=== PATIENT | male | born 1995 | race African-American/Black ===

== ENCOUNTER 2017-12-07 05:58 | Day surgery (SDC) | payer MEDICARE ==
[~2017-12-07] VITALS: Ht 182.9 cm; Wt 73.5 kg
--- NOTE | ~2017-12-07 | OP ---
PATIENT NAME: JENIFFER HERNANDEZ MEDICAL RECORD: [id number] :95 LOCATION:D.OPS ADMISSION DATE: SURGEON: ASHLEY TURCIOS MD DATE OF OPERATION: 12/07/2017 SURGEON: Ashley Turcios MD PREOPERATIVE DIAGNOSES: 1. Anal warts. 2. HIV. POSTOPERATIVE DIAGNOSES: 1. Anal warts. 2. HIV. PROCEDURE PERFORMED: CO2 laser fulguration of anal condylomas. ANESTHESIA: General. COMPLICATIONS: None. SPECIMENS: Anal condyloma. Case was contaminated. OPERATIVE COURSE: After consent was obtained, the patient was taken to the operating room and placed in supine position on the operating table. Next, general anesthesia was given. The patient was then placed in the [facility] cane stirrups. The perineum was prepped and draped in typical sterile fashion. Time-out was taken to confirm the correct patient and procedure. A 20 cc of local anesthetic was injected circumferentially for a perineal block. Digital rectal exam was performed. The rectum was then sterilely dilated using the [place] retractors. There were multiple condyloma noted within the perianal skin as well as within the anus below the dentate line. Several were excised with Metzenbaum scissors and sent for permanent pathology. All remaining lesions were treated with CO2 laser fulguration. At the end of the case, the rectum was packed with Gelfoam and [place]. At the end of the case, all needle and instrument counts were correct. No complications occurred. The patient was extubated and transferred to the PACU in stable condition. TRANSINT:[id number] Voice Confirmation ID: [id number] DOCUMENT ID: [id number] ASHLEY TURCIOS MD at 0811 CC: [id number] DICTATION DATE: 12/07/17 1128 MANAGEMENT ARCHITECT: 12/07/17 1302 [facility] 12/07/[address] [id number]
[~2017-12-07 05:58] MED LIST: HYDROCODONE-APA1 TAB PO; LEVAQUIN750 MG PO; MEDROL DOSE PACK4 MG PO; PROAIR HFA8.5 GM INH; TRIUMEQ TABLET1 EACH PO; ZITHROMAX250 MG PO; ZOFRAN4 MG PO
[2017-12-07 07:20] LABS: BASOPHILS 0.3 % (0-2); EOSINOPHILS 2.4 % (0-7); HEMATOCRIT 41.3 % (42.0-54.0); HEMOGLOBIN 14.3 g/dL (13.5-17.5); IMMATURE GRANULOCYTES 0.3 % (0-5); LYMPHOCYTES 36.5 % (15-50); MCH 31.9 pg (26.0-34.0); MCHC 34.6 g/dL (31.0-37.0); MCV 92.2 fL (80.0-100.0); MEAN PLATELET VOLUME 9.6 fL (7.4-10.4); MONOCYTES 12.8 % (2-11); NEUTROPHILS 47.7 % (40-80); PLATELET COUNT 167 10x3/uL (130-400); RBC 4.48 10x6/uL (4.20-6.10); RDW 11.3 % (11.5-14.5); WBC 5.9 10x3/uL (4.8-10.8)
[2017-12-07 07:29] LABS: APTT 32.2 SECONDS (22.8-39.4); INR 1.03 (0.85-1.17); PROTIME 13.1 SECONDS (11.6-15.0)
[2017-12-07 07:36] LABS: ALBUMIN 3.9 g/dL (3.4-5.0); ALKALINE PHOSPHATASE 80 U/L (46-116); ALT (SGPT) 16 U/L (10-68); BILIRUBIN - TOTAL 0.65 mg/dL (0.2-1.3); CALC OSMOLALITY 276 mosm/kg (275-300); CALCIUM 8.9 mg/dL (8.5-10.1); CHLORIDE - SERUM 102 mmol/L (98-107); CREATININE - SERUM 1.1 mg/dL (0.6-1.3); GLUCOSE 100 mg/dL (74-106); POTASSIUM - SERUM 3.9 mmol/L (3.5-5.1); PROTEIN - SERUM 7.8 g/dL (6.4-8.2); SODIUM 138 mmol/L (136-145); UREA NITROGEN 14 mg/dL (7-18); eGFR NON AFRICAN AMERICAN 89 mL/min (90-120)
[2017-12-07 07:51] VITALS: BP 123/77; Ht 182.9 cm; Wt 73.5 kg
[2017-12-07] MEDS ORDERED: VALIUM5 MG PO (11:25)
== END 2017-12-07 14:15 | disposition home or self-care (01) ==
LOC: D.OPS 05:58 → D.PAN 11:00 → D.OPS 14:15
PROVIDERS: Anesthesiology
DX: A63.0 Anogenital (venereal) warts (principal); B20 Human immunodeficiency virus [HIV] disease; Z01.812 Encounter for preprocedural laboratory examination